=== PATIENT | female | born 1955 | race Caucasian/White ===

== ENCOUNTER → 2017-03-06 | Day surgery (SDC) | payer OTHER ==
[~2017-03-06] VITALS: Ht 149.9 cm; Wt 89.4 kg
[~2017-03-06] MED LIST: *morphine SULFATE 8 MG/ML PERIprocedure ONLY ONE; ACETAMINOPHEN 1000 MG/100 ML VIAL IV ONE; BUPIVACAINE/EPINEPHRINE 0.25% PF 30 ML VIAL ONE; CHLORHEXIDINE GLUCONATE 2 % 1 PACK (2 CLOTHS) TOPICAL PRN; CHLORHEXIDINE GLUCONATE 4% SOLN 120 ML BTL TOPICAL SCH; CYCL1TAB29 PO; DEXAMETHASONE SOD PHOS 4 MG/ML VIAL ONE; DO NOT ADM ANY ANTICOAGULANT DRUGS PRN; FAMOTIDINE 20 MG/2 ML VIAL ONE; HYDR-3516 PO; INSULIN HUMAN REGULAR 1,000 UNITS/10 ML VIAL SQ PRN; KETOROLAC TROMETHAMINE 30 MG/ML (IVP) VIAL IVP ONE; LACTATED RINGER'S 1000 ML INJ 1,000 ML IV ONE; LACTATED RINGER'S 1000 ML IV PRN; LIDOCAINE HCL 1% 50 ML VIAL ONE; LOVA40TA PO; METOPROLOL TARTRATE 25 MG TAB PO PRN; MIDAZOLAM HCL 2 MG/2 ML VIAL ONE; MORPHINE SULFATE 4 MG/ML INJ IV PUSH PRN; NAPR220T95 PO; ONDANSETRON HCL 4 MG/2 ML VIAL IV PRN; ONDANSETRON HCL 4 MG/2 ML VIAL IV PUSH ONE; OXYC1TAB63 PO; POVIDONE IODINE 5% (ANTISEPSIS KIT) 4 APPLICATIONS EACH NARE PRN; PROPOFOL 200 MG/20 ML AMP IV ONE; SODIUM CHLORID 0.9% 500 ML IV PRN; SODIUM CHLORIDE 0.9% FLUSH 10 ML FLUSH IV FLUSH PRN; SODIUM CHLORIDE 0.9% FLUSH 10 ML FLUSH IV FLUSH SCH; STRETAB11 PO; VANCOMYCIN 1000 MG/NS 250 ML (for <70 kg) IV SCH; [UNRECOGNIZED DRUG - CODE] T-DERMAL; ceFAZolin 2 GM PREMIX 50 ML IV SCH; fentaNYL CITRATE 250 MCG/5 ML AMP ONE; oxyCODONE/ACETAMINOPHEN 5 MG/325 MG TAB PO PRN
[2017-03-06 08:26] VITALS: BP 123/89; PULSE 87; RESP 16; TEMP 98.3; O2SAT 96
--- NOTE | 2017-03-06 12:47 | PD.OP ---
cc: John Burgos Jr., MD Operative Report Date of Surgery: March 06, 2017 Preoperative Diagnosis: Left knee medial and lateral meniscal tear Postoperative Diagnosis: Same Procedure: Left knee arthroscopy with medial and lateral partial meniscectomy Anesthesia: Gen. Surgeon: Jonh Burgos Groover And Striper Operator(s): BONNIE Sexton The surgical procedure was assisted by my Advanced Registered Nurse Practitioner. My PRINTED FORMS PROOFREADER presence was necessary throughout this case for the manipulation and positioning of the surgical extremity. My PRINTED FORMS PROOFREADER was assisting me throughout the duration of this procedure. The skill set of an Advance Registered Nurse Practitioner was medically necessary to complete this procedure. During the surgical case, the surgical specialist was working at the back table and the Advance Registered Nurse Practitioner was directly assisting me. Resident Surgeon: None Operation and Findings: INDICATION FOR PROCEDURE: The patient is a very pleasant 62-year-old female who enjoys aerobics and physical activities comes in complaining of increasing left knee pain that is unresponsive to conservative care, including antianflammatory medications, injections and physical therapy, now presents for knee arthroscopy and surgery as indicated. MRI confirms a medial meniscal tear. Risks of anesthesia, infection, bleeding, damage to neurovascular structures, stiffness, DVT, incomplete pain relief secondary to degenerative joint disease, possibly the need for future procedure were explained. Patient understands that risk and agrees with my recommendation and wishes to proceed with the planned procedure. PROCEDURE DETAILS: The patient was taken to the operating room. Monitored anesthesia care was induced. The extremity was sterilely prepped and draped. Examination under anesthesia was normal. Arthroscope was introduced into the parapatellar working portal. The suprapatella pouch was found to be free of any abnormality. The medial and lateral gutters were within normal limits without any loose bodies. The patellofemoral articulation tracked well with mild chondromalacia seen. The notch was examined and the anterior cruciate appeared partially torn at some anterior fibers And posterior cruciate ligaments was normal. The medial compartment was inspected and hyaline cartilage surface where in poor condition with grade 3-4 degeneration diffusely throughout the medial plateau and kissing lesion at the medial femoral condyle. A complex posterior horn on the medial meniscal tear was identified and this was debrided back to a smooth stable rim with the up-biting punch and the shaver. No other significant problems were identified. The notch view did not confirm incarcerated fragments posterior medially. The anterior horn and the medial horn were inspected and were normal. Arthroscope was introduced into lateral compartment and here was a radial tear at the midpoint with diffuse degenerative tear of the anterior horn. This was trimmed back appropriately. No incarcerated fragment were identified. The wounds were copiously irrigated and closed with nylon. A sterile dressing was applied. The patient tolerated procedure very well. There were no complications. John Burgos Jr., MD March 06, 2017 12:47
[2017-03-06 14:47] VITALS: BP 133/64; PULSE 84; RESP 18; TEMP 97.5; O2SAT 98
== END | disposition home or self-care (01) ==
LOC: HSDC 07:31
PROVIDERS: ATTEND Orthopaedic Surgery
DX: S83.232A Complex tear of medial meniscus, current injury, left knee, initial encounter (principal); S83.272A Complex tear of lateral meniscus, current injury, left knee, initial encounter; M17.12 Unilateral primary osteoarthritis, left knee
CPT/HCPCS: 01400; 29880; J0131; J0690; J1100; J1885; J2250; J2270; J2405; J3010; J3370; J7050; J7120